=== PATIENT | female | born 1940 | race Caucasian/White ===

== ENCOUNTER 2019-02-11 08:42 | Outpatient (REF) | payer MEDICARE, SELFPAY ==
[2019-02-11 21:55] LABS: ALT 28 U/L (14-59); AST 20 U/L (15-37); Anion Gap 9.7 mmol/L (3-11); BUN 13 mg/dL (7-18); CO2 27.3 mmol/L (21.0-32.0); CREATININE 0.82 mg/dL (0.55-1.02); Calcium 8.8 mg/dL (8.5-10.1); Calculated LDL 58 mg/dL; Chloride 105 mmol/L (98-107); Cholesterol 135 mg/dL (50-200); Glucose 112 mg/dL (70-100); HDL Cholesterol 64 mg/dL (40-60); Potassium 4.1 mmol/L (3.5-5.1); Sodium 142 mmol/L (136-145); Triglyceride 65 mg/dL (30-150)
== END 2019-02-11 09:02 ==
LOC: NCHCN 08:42
PROVIDERS: PCP Physician Assistant; Visit Provider Nurse Practitioner Family
DX: E78.5 Hyperlipidemia, unspecified (principal)
CPT/HCPCS: 80048; 80061; 84450; 84460

== ENCOUNTER 2020-03-07 11:08 | Outpatient (REF) | payer MEDICARE, SELFPAY ==
[2020-03-07 19:49] LABS: ALT 28 U/L (14-59); AST 22 U/L (15-37); Calculated LDL 68 mg/dL (<100); Cholesterol 143 mg/dL (<200); HDL Cholesterol 55 mg/dL (40-60); TSH (W/Ref FT4) 1.58 uIU/mL (0.36-3.74); Triglyceride 102 mg/dL (<150)
== END 2020-03-07 11:28 ==
LOC: NCHCN 11:08
PROVIDERS: PCP Physician Assistant; Visit Provider Nurse Practitioner Family
DX: E78.5 Hyperlipidemia, unspecified (principal); E04.2 Nontoxic multinodular goiter
CPT/HCPCS: 80061; 84443; 84450; 84460

== ENCOUNTER 2021-05-25 12:15 | Outpatient (REF) | payer MEDICARE, SELFPAY ==
[2021-05-25 19:26] LABS: Anion Gap 8.7 mmol/L (3-11); BUN 17 mg/dL (7-18); CO2 28.3 mmol/L (21.0-32.0); CREATININE 0.8 mg/dL (0.55-1.02); Calcium 8.9 mg/dL (8.5-10.1); Chloride 104 mmol/L (98-107); Glucose 128 mg/dL (74-106); Potassium 3.7 mmol/L (3.5-5.1); Sodium 141 mmol/L (136-145)
== END 2021-05-25 12:16 | disposition home or self-care (01) ==
LOC: NCHCN 12:15
PROVIDERS: PCP Physician Assistant; Visit Provider Nurse Practitioner Family
DX: E78.5 Hyperlipidemia, unspecified (principal)
CPT/HCPCS: 80048

== ENCOUNTER 2021-07-20 20:32 | Outpatient (REF) | payer MEDICARE, SELFPAY ==
[2021-07-22 11:31] LABS: COVID-19 RT-PCR UVMMC Result Negative (Negative)
== END 2021-07-20 20:33 | disposition home or self-care (01) ==
LOC: LBN 20:32
PROVIDERS: PCP Physician Assistant; Visit Provider Nurse Practitioner Family
DX: Z20.822 Contact with and (suspected) exposure to COVID-19 (principal); J06.9 Acute upper respiratory infection, unspecified
CPT/HCPCS: U0003; U0005

== ENCOUNTER 2022-12-18 13:24 | Outpatient (REF) | payer MEDICARE, SELFPAY | END 2022-12-18 13:25 | disposition home or self-care (01) | LOC: NCHCN 13:24 | PROVIDERS: PCP Physician Assistant; Visit Provider Nurse Practitioner Family | DX: R30.0 Dysuria (principal) | CPT/HCPCS: 87077; 87086; 87186 ==

== ENCOUNTER 2023-06-17 18:16 | Outpatient (REF) | payer MEDICARE, SELFPAY ==
[2023-06-17 19:56] LABS: Anion Gap 6.1 mmol/L (3-11); BUN 16 mg/dL (7-18); CO2 30.9 mmol/L (21.0-32.0); CREATININE 0.7 mg/dL (0.55-1.02); Calcium 9.9 mg/dL (8.5-10.1); Chloride 105 mmol/L (98-107); Estimated GFR 85.76 (mL/min/1.73m2); Glucose 119 mg/dL (74-106); Potassium 4.3 mmol/L (3.5-5.1); Sodium 142 mmol/L (136-145)
== END 2023-06-17 18:17 | disposition home or self-care (01) ==
LOC: NCHCN 18:16
PROVIDERS: PCP Physician Assistant; Visit Provider Nurse Practitioner Family
DX: R73.03 Prediabetes (principal)
CPT/HCPCS: 80048

== ENCOUNTER 2024-07-06 10:46 | Outpatient (REF) | payer MEDICARE, SELFPAY ==
[2024-07-06 20:26] LABS: Anion Gap 4.1 mmol/L (3-11); BUN 15 mg/dL (7-18); CO2 31.9 mmol/L (21.0-32.0); CREATININE 0.8 mg/dL (0.55-1.02); Calcium 9.2 mg/dL (8.5-10.1); Chloride 109 mmol/L (98-107); Estimated GFR 72.61 (mL/min/1.73m2); Glucose 122 mg/dL (74-106); Potassium 4.5 mmol/L (3.5-5.1); Sodium 145 mmol/L (136-145)
== END 2024-07-06 10:47 | disposition home or self-care (01) ==
LOC: NCHCN 10:46
PROVIDERS: PCP Physician Assistant; Visit Provider Nurse Practitioner Family
DX: R73.03 Prediabetes (principal)
CPT/HCPCS: 80048

== ENCOUNTER 2025-04-27 18:26 | Outpatient (REF) | payer MEDICARE, SELFPAY | END 2025-04-27 18:27 | disposition home or self-care (01) | LOC: NCHCN 18:26 | PROVIDERS: PCP Physician Assistant; Visit Provider Nurse Practitioner Family | DX: R35.0 Frequency of micturition (principal) | CPT/HCPCS: 87077; 87086; 87186 ==